=== PATIENT | female | born 1960 | race Caucasian/White ===

== ENCOUNTER 2019-02-03 09:38 | Emergency (ER) | payer OTHER ==
[~2019-02-03] VITALS: Ht 162.6 cm; Wt 69.9 kg
[2019-02-03 09:44] VITALS: BP 153/91
--- NOTE | 2019-02-03 09:50 | NUR ---
C/O SCALP PAIN, PRIMARILY R SIDE, X 5 DAYS ACCOMPANIED BY HEADACHE, PT STATES SHE THINKS SHE WAS BITTEN BY SOMETHING AFTER BEING OUTSIDE ALL DAY LAST TUESDAY. DENIED N/V/D/FEVER. PT TAKING IBUPROFEN AT HOME WITH MINIMAL RELIEF. NEURO CHECK INTACT. PT IS A&O X4, ANSWERING QUESTIONS APPROPRIATELY. NO REDNESS, BUMPS, SWELLING NOTICED TO R SIDE OF SCALP. BED IN LOW POSITION, SIDE RAIL UP X1, AT BEDSIDE.
--- NOTE | 2019-02-03 09:55 | NUR ---
DR. MORALEZ AT BEDSIDE
[2019-02-03] MEDS ORDERED: NACL 0.9% 1,000 ML IV ONE (09:59)
[2019-02-03] MEDS ORDERED: diphenhydrAMINE 50 MG/ML VIAL IVP ONE (10:00)
[2019-02-03] MEDS ORDERED: METOCLOPRAMIDE 10 MG/2 ML INJ VIAL IVP ONE (10:00)
--- NOTE | 2019-02-03 10:45 | NUR ---
PT STATES MEDICATIONS HAVE HELPED EASE PAIN, PAIN IS NOW 5/10
[2019-02-03] MEDS ORDERED: KETOROLAC 15 MG/ML VIAL IVP ONE (10:55)
--- NOTE | 2019-02-03 11:20 | NUR ---
PT STATES TORADOL HAS HELPED WITH PAIN, PAIN IS NOW 4/10.
[2019-02-03 11:27] VITALS: BP 140/86
--- NOTE | 2019-02-03 11:27 | NUR ---
Patient discharged with v/s stable. Written and verbal after care instructions given and explained. Patient alert, oriented and verbalized understanding of instructions. Ambulatory with steady gait. All questions addressed prior to discharge. ID band removed. Patient advised to follow up with PMD. Rx of ZOFRAN, IBUPROFEN, NORCO given. Patient educated on indication of medication including possible reaction and side effects. Opportunity to ask questions provided and answered.
== END 2019-02-03 11:25 | disposition home or self-care (01) ==
LOC: MED 09:38
DX: R51 Headache (principal); J45.909 Unspecified asthma, uncomplicated; F12.10 Cannabis abuse, uncomplicated; Z88.0 Allergy status to penicillin; Z98.890 Other specified postprocedural states
CPT/HCPCS: 81002; 81025; 96374; 96375; 99283; J1200; J1885; J2765; J7030